=== PATIENT | female | born 1950 | race Caucasian/White ===

== ENCOUNTER 2018-08-02 09:36 | Outpatient (CLI) | payer MEDICARE, BC | END 2018-08-02 09:37 | disposition home or self-care (01) | LOC: BICMAMMO 09:36 | PROVIDERS: ATTEND Family Medicine | DX: Z12.31 Encounter for screening mammogram for malignant neoplasm of breast (principal); Z80.3 Family history of malignant neoplasm of breast | CPT/HCPCS: 77063; 77067 ==

== ENCOUNTER 2023-01-24 05:50 | Day surgery (SDC) | payer MEDICARE ==
[2023-01-21 10:23] VITALS: BMI 33.3
[2023-01-24 06:43] LABS: #Basophils 0.1 thou/uL (0.0-0.2); #Eosinphils 0.5 thou/uL (0.0-0.7); #Monocytes 0.8 thou/uL (0.11-0.59); #Neutrophils 5.3 thou/uL (1.40-6.50); %Basophils 0.8 % (0.0-1.0); %Eosinophils 5.9 % (0.0-10.0); %Lymphocytes 14.6 % (21.0-51.0); %Monocytes 10.3 % (0.0-10.0); %Neutrophils 67.9 % (42.0-75.0); Hemoglobin 15.7 g/dL (12.0-16.0); Mean Corpuscular HGB CONC 33.5 g/dL (32.0-36.0); Mean Corpuscular Hemoglobin 28.6 pg (27.0-31.0); Mean Corpuscular Volume 85.2 fl (78.0-98.0); Mean Platelet Volume 10.1 fL (7.4-10.4); Platelet Count 202 10x3/uL (130-400); RBC Distribution Width 12.1 % (11.5-14.5); Red Blood Cell (RBC) Count 5.49 mill/uL (4.20-5.40); White Blood Cell (WBC) Count 7.7 10x3/uL (4.8-10.8)
[2023-01-24] MEDS ORDERED: Adenosine 6 MG/2 ML VIAL ONE (06:59)
[2023-01-24] MEDS ORDERED: Verapamil 5 MG/2 ML VIAL ONE (06:59)
[2023-01-24] MEDS ORDERED: Midazolam HCl 2 mg/2 ml Vial ONE (06:59)
[2023-01-24] MEDS ORDERED: Heparin 10,000 UNITS/ 10 ML VIAL ONE (06:59)
[2023-01-24] MEDS ORDERED: fentaNYL 50 mcg/mL 1 mL Vial ONE (06:59)
[2023-01-24] MEDS ORDERED: Nitroglycerin 50 MG/250 ML BOT 0 ML ONE (07:00)
[2023-01-24] MEDS ORDERED: Lidocaine 1% (PF) 30 ML VIAL ONE (07:00)
[2023-01-24 07:07] LABS: ALT (SGPT) 48 U/L (8-55); AST (SGOT) 41 U/L (5-34); Albumin 4.2 g/dL (3.4-4.8); Alkaline Phosphatase 98 U/L (40-110); Anion Gap 17 mmol/L (10-20); BUN (Urea Nitrogen) 11 mg/dL (9.8-20.1); Bilirubin, Total 0.5 mg/dL (0.2-1.2); Calc. Creatinine Clearance 85 mL/min (70-130); Calcium 9.7 mg/dL (7.8-10.44); Carbon Dioxide 19 mmol/L (23-31); Chloride 103 mmol/L (98-107); Estimated GFR 75; Globulin 3.2 g/dL (2.4-3.5); Glucose 271 mg/dL (83-110); Potassium 4.1 mmol/L (3.5-5.1); Protein, Total 7.4 g/dL (5.8-8.1); Sodium 135 mmol/L (136-145)
[2023-01-24] MEDS ORDERED: Iopamidol 370 76% 100 ML VIAL ONE (11:41)
== END 2023-01-24 11:30 | disposition home or self-care (01) ==
LOC: CCL 05:50
PROVIDERS: ATTEND Internal Medicine Cardiovascular Disease
PROC: 4A023N7 Measurement of Cardiac Sampling and Pressure, Left Heart, Percutaneous Approach (ICD-10-PCS; principal; 2023-01-24)
PROC: B2000ZZ Plain Radiography of Single Coronary Artery using High Osmolar Contrast (ICD-10-PCS; 2023-01-24)
DX: I25.10 Atherosclerotic heart disease of native coronary artery without angina pectoris (principal); R06.02 Shortness of breath; I87.2 Venous insufficiency (chronic) (peripheral); E11.9 Type 2 diabetes mellitus without complications; I10 Essential (primary) hypertension; E78.5 Hyperlipidemia, unspecified; M19.90 Unspecified osteoarthritis, unspecified site; Z95.5 Presence of coronary angioplasty implant and graft; Z90.710 Acquired absence of both cervix and uterus; Z98.41 Cataract extraction status, right eye; Z98.42 Cataract extraction status, left eye; Z79.84 Long term (current) use of oral hypoglycemic drugs; Z79.899 Other long term (current) drug therapy
CPT/HCPCS: 80053; 85025; 93005; 93458; J3010; 93010; 99152; J0153; J1644; J2001; J2250

== ENCOUNTER 2023-05-09 05:46 | Inpatient (IN) | payer MEDICARE ==
[2023-05-06 09:51] VITALS: BMI 32.5
[2023-05-06 10:15] LABS: Hematocrit 41.6 % (34.9-44.5); Hemoglobin 14.2 g/dL (12.0-15.5); Mean Corpuscular HGB CONC 34.1 g/dL (32.0-36.0); Mean Corpuscular Hemoglobin 28.7 pg (27.0-33.0); Mean Platelet Volume 10.7 fl (7.4-10.4); Platelet Count 197 10x3/uL (150-450); RBC Distribution Width 12.2 % (11.5-14.5); Red Blood Cell (RBC) Count 4.95 10x6/uL (3.90-5.03); White Blood Cell (WBC) Count 5.6 10x3/uL (3.5-10.5)
[2023-05-06 10:27] LABS: Anion Gap 14 mmol/L (10-20); BUN (Urea Nitrogen) 9 mg/dL (9.8-20.1); Calc. Creatinine Clearance 0 mL/min (70-130); Carbon Dioxide 24 mmol/L (23-31); Chloride 103 mmol/L (98-107); Potassium 4.1 mmol/L (3.5-5.1); Sodium 137 mmol/L (136-145)
[2023-05-06 10:28] LABS: Estimated GFR 81; Glucose 301 mg/dL (83-110)
[2023-05-09] MEDS ORDERED: Albumin 5% 500 ML ONE (06:38)
[2023-05-09] MEDS ORDERED: Phenylephrine 10 MG/ML VIAL ONE ×2 (06:39→06:40)
[2023-05-09] MEDS ORDERED: PHENYLEPHRINE-NS 100 MCG/ML 10 ML SYRINGE ONE ×2 (06:40→07:48)
[2023-05-09] MEDS ORDERED: Sevoflurane 250 ML INH ANEST BOTTLE ONE (06:41)
[2023-05-09] MEDS ORDERED: Heparin 10,000 UNITS/1 ML VIAL 30,000 UNITS in Sodium Chloride 0.9% 1,000 ML FS SCH (06:45)
[2023-05-09] MEDS ORDERED: Midazolam HCl 2 mg/2 ml Vial ONE ×2 (07:01)
[2023-05-09] MEDS ORDERED: Fentanyl 250 MCG/5 ML VIAL ONE (07:01)
[2023-05-09] MEDS ORDERED: niCARdipine 25 MG/10 ML SDV ONE (07:02)
[2023-05-09] MEDS ORDERED: Insulin Regular 300 UNITS/3 ML VIAL ONE (07:02)
[2023-05-09] MEDS ORDERED: Aminocaproic Acid 5 GM/20 ML VIAL ONE (07:02)
[2023-05-09] MEDS ORDERED: Rocuronium Bromide 50 MG/5 ML VIAL ONE (07:02)
[2023-05-09] MEDS ORDERED: Norepinephrine 4 MG/4 ML VIAL ONE (07:02)
[2023-05-09] MEDS ORDERED: Clindamycin/D5W 900 mg/50 ml Premix Bag ONE (07:29)
[2023-05-09] MEDS ORDERED: PROPOFOL 200 MG/20 ML VIAL ONE (07:48)
[2023-05-09] MEDS ORDERED: Lidocaine 1% PF 5 ML VIAL ONE (07:48)
[2023-05-09] MEDS ORDERED: Rocuronium Bromide 10 MG/ML (10ML VIAL) ONE (07:48)
[2023-05-09] MEDS ORDERED: Esmolol 100 MG/10 ML VIAL ONE (07:48)
[2023-05-09] MEDS ORDERED: Bisacodyl 5 MG TAB PO PRN (10:34)
[2023-05-09] MEDS ORDERED: Guaifenesin DM 100-10/5 ML UDCUP PO PRN (10:34)
[2023-05-09] MEDS ORDERED: Ipratropium/Albuterol 3 ML NEB NEB PRN (10:34)
[2023-05-09] MEDS ORDERED: Morphine 2 MG/ML VIAL SLOW IVP PRN (10:34)
[2023-05-09] MEDS ORDERED: Mag-Al 1200 mg/1200 mg/30 ML UDCUP PO PRN (10:34)
[2023-05-09] MEDS ORDERED: Hetastarch 6% 500 ML 500 ML IVPB PRN (10:34)
[2023-05-09] MEDS ORDERED: niCARdipine 25 MG in Sodium Chloride 0.9% 250 ML 250 ML IVPB PRN (10:34)
[2023-05-09] MEDS ORDERED: NOREPINEPHRINE 8 MG/250 ML-D5W 250 ML IVPB PRN (10:34)
[2023-05-09] MEDS ORDERED: Nitroglycerin 50 MG/250 ML BOT 250 ML IVPB PRN (10:34)
[2023-05-09] MEDS ORDERED: Post-Op Insulin Drip Protocol IVPB ONE (10:34)
[2023-05-09] MEDS ORDERED: Ondansetron PF 4 MG/2 ML Vial IVP PRN (10:34)
[2023-05-09] MEDS ORDERED: DOPamine 400 MG/D5W 250 ML 250 ML IVPB PRN (10:34)
[2023-05-09] MEDS ORDERED: Acetaminophen 325 MG TAB PO PRN (10:34)
[2023-05-09] MEDS ORDERED: fentaNYL 50 mcg/mL 1 mL Vial SLOW IVP PRN (10:34)
[2023-05-09] MEDS ORDERED: Bisacodyl 10 MG SUPP PR PRN (10:34)
[2023-05-09] MEDS ORDERED: Dextrose 50% Abboject 50 ML SYRINGE SLOW IVP PRN (10:45)
[2023-05-09] MEDS ORDERED: HUMULIN R 100 UNITS in Sodium Chloride 0.9% 100 ML IVPB SCH (10:45)
[2023-05-09] MEDS ORDERED: Dextrose 5% in Water 1,000 ML IV PRN (10:45)
[2023-05-09] MEDS ORDERED: Glucagon 1 MG/ML KIT SC PRN (10:45)
[2023-05-09 10:49] LABS: Actual Bicarbonate (HCO3a) 22.5 mEq/L (22-28); Base Excess (BEa) -2.2 mEq/L (-2.0 to +3.0); CO2 Tension 38.6 mmHg (35.0-45.0); Calcium, Ionized (arterial) 1.09 mmol/L (1.12-1.30); Carboxyhemoglobin (COHb) 0.3 gm% (0.0-3.0); Hematocrit-ABG 35 % (36.0-47.0); Hemoglobin (Hb) 11.9 g/dL (12.0-16.0); O2 Tension (PaO2), arterial 207.3 mmHg (> 70.0); Potassium - ABG Lab 3.74 mmol/L (3.70-5.30); pH, Arterial 7.384 (7.35-7.45)
[2023-05-09 10:54] LABS: Puncture Site Arterial Line
[2023-05-09] MEDS: Lactated Ringer's 1,000 ML IV SCH (11:07)
[2023-05-09] MEDS: Ketorolac Tromethamine 30 MG/ML VIAL IVP SCH ×2 (11:10→18:15)
[2023-05-09 11:13] LABS: #Eosinphils 0.3 thou/uL (0.0-0.7); #Monocytes 0.3 thou/uL (0.11-0.59); %Basophils 0.6 % (0.0-1.0); %Eosinophils 4.8 % (0.0-10.0); %Lymphocytes 13.6 % (21.0-51.0); %Monocytes 4.7 % (0.0-10.0); %Neutrophils 74.6 % (42.0-75.0); Hematocrit 33.1 % (36.0-47.0); Hemoglobin 11.2 g/dL (12.0-16.0); Mean Corpuscular HGB CONC 33.8 g/dL (32.0-36.0); Mean Corpuscular Hemoglobin 29.3 pg (27.0-31.0); Mean Corpuscular Volume 86.6 fl (78.0-98.0); Mean Platelet Volume 10.4 fL (7.4-10.4); Platelet Count 119 10x3/uL (130-400); RBC Distribution Width 12.1 % (11.5-14.5); Red Blood Cell (RBC) Count 3.82 mill/uL (4.20-5.40); White Blood Cell (WBC) Count 5.4 10x3/uL (4.8-10.8)
[2023-05-09 11:24] LABS: INR-International Normal Ratio 1.4; PTT 32.1 sec (22.9-36.1); Prothrombin Time 17.4 sec (12.0-14.7)
[2023-05-09] MEDS: hydrALAZINE 20 MG/ML VIAL SLOW IVP PRN (11:25)
[2023-05-09 11:38] LABS: Anion Gap 8 mmol/L (10-20); BUN (Urea Nitrogen) 7 mg/dL (9.8-20.1); Calc. Creatinine Clearance 114 mL/min (70-130); Calcium 7.6 mg/dL (7.8-10.44); Carbon Dioxide 24 mmol/L (23-31); Chloride 111 mmol/L (98-107); Estimated GFR 93; Glucose 155 mg/dL (83-110); Potassium 3.8 mmol/L (3.5-5.1); Sodium 139 mmol/L (136-145)
[2023-05-09] MEDS: Potassium Chloride 20 MEQ/100 ML PREMIX BAG IVPB PRN ×2 (11:43→17:25)
[2023-05-09] MEDS: Clindamycin/D5W 900 MG in Premix 1 BAG IVPB SCH ×2 (12:43→18:15)
[2023-05-09 16:01] LABS: Actual Bicarbonate (HCO3a) 21.5 mEq/L (22-28); Base Excess (BEa) -3.1 mEq/L (-2.0 to +3.0); CO2 Tension 37.2 mmHg (35.0-45.0); Calcium, Ionized (arterial) 1.16 mmol/L (1.12-1.30); Carboxyhemoglobin (COHb) 0.9 gm% (0.0-3.0); Hematocrit-ABG 39 % (36.0-47.0); Hemoglobin (Hb) 13.4 g/dL (12.0-16.0); O2 Tension (PaO2), arterial 148.3 mmHg (> 70.0); Potassium - ABG Lab 3.69 mmol/L (3.70-5.30)
[2023-05-09 16:08] LABS: Puncture Site Arterial Line
[2023-05-09] MEDS: fentaNYL 50 mcg/mL 1 mL Vial SLOW IVP PRN ×2 (16:17→21:17)
[2023-05-09 16:48] LABS: Hematocrit 37.8 % (36.0-47.0); Hemoglobin 12.8 g/dL (12.0-16.0)
[2023-05-09 17:12] LABS: Potassium 3.6 mmol/L (3.5-5.1)
[2023-05-09] MEDS: Atorvastatin Calcium 20 MG TAB PO SCH (21:51)
[2023-05-09] MEDS: HYDROcodone/Acetaminophen 5/325 mg Tablet PO PRN (21:51)
[2023-05-09] MEDS: Famotidine/PF 20 mg/2ml Vial SLOW IVP SCH (21:53)
[2023-05-10] MEDS: Clindamycin/D5W 900 MG in Premix 1 BAG IVPB SCH ×2 (00:48→06:32)
[2023-05-10] MEDS: Ketorolac Tromethamine 30 MG/ML VIAL IVP SCH ×3 (00:48→11:43)
[2023-05-10] MEDS: Lactated Ringer's 1,000 ML IV SCH ×3 (00:50→11:57)
[2023-05-10 05:21] LABS: #Monocytes 0.4 thou/uL (0.11-0.59); #Neutrophils 5.2 thou/uL (1.40-6.50); %Basophils 0.5 % (0.0-1.0); %Eosinophils 0.2 % (0.0-10.0); %Lymphocytes 10.1 % (21.0-51.0); Hematocrit 39.4 % (36.0-47.0); Hemoglobin 12.9 g/dL (12.0-16.0); Mean Corpuscular HGB CONC 32.7 g/dL (32.0-36.0); Mean Corpuscular Hemoglobin 29.1 pg (27.0-31.0); Mean Corpuscular Volume 88.9 fl (78.0-98.0); Mean Platelet Volume 10.7 fL (7.4-10.4); Platelet Count 141 10x3/uL (130-400); RBC Distribution Width 12.9 % (11.5-14.5); Red Blood Cell (RBC) Count 4.43 mill/uL (4.20-5.40); White Blood Cell (WBC) Count 6.3 10x3/uL (4.8-10.8)
[2023-05-10] MEDS: HYDROcodone/Acetaminophen 5/325 mg Tablet PO PRN ×3 (05:28→20:07)
[2023-05-10 05:59] LABS: Anion Gap 11 mmol/L (10-20); BUN (Urea Nitrogen) 10 mg/dL (9.8-20.1); Calc. Creatinine Clearance 110 mL/min (70-130); Calcium 8.4 mg/dL (7.8-10.44); Carbon Dioxide 21 mmol/L (23-31); Chloride 111 mmol/L (98-107); Estimated GFR 93; Glucose 143 mg/dL (83-110); Sodium 139 mmol/L (136-145)
[2023-05-10] MEDS: Potassium Chloride 20 MEQ/100 ML PREMIX BAG IVPB PRN (06:35)
[2023-05-10] MEDS: glipiZIDE 5 MG TAB PO SCH ×2 (07:55→16:22)
[2023-05-10] MEDS: Famotidine/PF 20 mg/2ml Vial SLOW IVP SCH (09:54)
[2023-05-10] MEDS: Aspirin 325 MG TAB PO SCH (09:54)
[2023-05-10] MEDS: Polyethylene Glycol 3350 17 GM Packet PO SCH (09:59)
[2023-05-10] MEDS ORDERED: Insulin Glargine 30 UNITS/0.3 ML VIAL SC SCH (10:30)
[2023-05-10] MEDS ORDERED: Insulin Glargine 30 UNITS/0.3 ML VIAL SC PRN (10:41)
[2023-05-10] MEDS: Insulin Regular 300 UNITS/3 ML VIAL SC PRN ×2 (16:22→20:18)
[2023-05-10] MEDS: hydrALAZINE 20 MG/ML VIAL SLOW IVP PRN ×2 (16:58→22:36)
[2023-05-10] MEDS: Atorvastatin Calcium 20 MG TAB PO SCH (20:07)
[2023-05-10] MEDS: Famotidine 20 MG TAB PO SCH (20:07)
[2023-05-11 04:04] LABS: #Eosinphils 0.1 thou/uL (0.0-0.7); #Monocytes 0.9 thou/uL (0.11-0.59); #Neutrophils 6.5 thou/uL (1.40-6.50); %Basophils 0.4 % (0.0-1.0); %Eosinophils 0.8 % (0.0-10.0); %Lymphocytes 11.1 % (21.0-51.0); %Monocytes 10.2 % (0.0-10.0); Hematocrit 37.3 % (36.0-47.0); Hemoglobin 12.1 g/dL (12.0-16.0); Mean Corpuscular HGB CONC 32.4 g/dL (32.0-36.0); Mean Corpuscular Hemoglobin 29.2 pg (27.0-31.0); Mean Corpuscular Volume 89.9 fl (78.0-98.0); Mean Platelet Volume 10.6 fL (7.4-10.4); Platelet Count 129 10x3/uL (130-400); RBC Distribution Width 13.2 % (11.5-14.5); Red Blood Cell (RBC) Count 4.15 mill/uL (4.20-5.40); White Blood Cell (WBC) Count 8.4 10x3/uL (4.8-10.8)
[2023-05-11 04:30] LABS: Anion Gap 13 mmol/L (10-20); BUN (Urea Nitrogen) 15 mg/dL (9.8-20.1); Calc. Creatinine Clearance 96 mL/min (70-130); Calcium 8.6 mg/dL (7.8-10.44); Carbon Dioxide 20 mmol/L (23-31); Chloride 107 mmol/L (98-107); Estimated GFR 82; Glucose 174 mg/dL (83-110); Potassium 4.3 mmol/L (3.5-5.1); Sodium 136 mmol/L (136-145)
[2023-05-11] MEDS: Insulin Regular 300 UNITS/3 ML VIAL SC PRN (05:43)
[2023-05-11] MEDS: glipiZIDE 5 MG TAB PO SCH ×2 (07:18→16:52)
[2023-05-11] MEDS: HYDROcodone/Acetaminophen 5/325 mg Tablet PO PRN ×2 (08:03→18:47)
[2023-05-11] MEDS: Famotidine 20 MG TAB PO SCH ×2 (08:37→20:22)
[2023-05-11] MEDS: Aspirin 325 MG TAB PO SCH (08:37)
[2023-05-11] MEDS: Polyethylene Glycol 3350 17 GM Packet PO SCH (08:38)
[2023-05-11] MEDS ORDERED: Nitroglycerin 0.4 MG TAB (25 Tab Bottle) SL PRN (09:18)
[2023-05-11] MEDS ORDERED: Glucagon 1 MG/ML KIT SC PRN (09:45)
[2023-05-11] MEDS ORDERED: Insulin Regular 300 UNITS/3 ML VIAL SC PRN (09:45)
[2023-05-11] MEDS ORDERED: HUMULIN R 100 UNITS in Sodium Chloride 0.9% 100 ML IVPB SCH (09:45)
[2023-05-11] MEDS ORDERED: Dextrose 5% in Water 1,000 ML IV PRN (09:45)
[2023-05-11] MEDS ORDERED: Dextrose 50% Abboject 50 ML SYRINGE SLOW IVP PRN (09:45)
[2023-05-11 17:55] LABS: Glucose 251 mg/dL (83-110)
[2023-05-11] MEDS: Atorvastatin Calcium 20 MG TAB PO SCH (20:22)
[2023-05-11] MEDS ORDERED: Carvedilol 3.125 MG TAB PO SCH (21:00)
[2023-05-12] MEDS ORDERED: dilTIAZem 25 MG/5 ML VIAL SLOW IVP SCH (05:30)
[2023-05-12] MEDS ORDERED: dilTIAZem 125 MG, Admixture Fee 1 EACH in Sodium Chloride 0.9% 100 ML IVPB SCH (06:00)
[2023-05-12 07:40] LABS: Glucose 228 mg/dL (83-110)
[2023-05-12] MEDS: glipiZIDE 10 MG TAB PO SCH ×2 (08:27→16:25)
[2023-05-12] MEDS: Furosemide 40 MG TAB PO SCH (08:27)
[2023-05-12] MEDS: Potassium Chloride 10 MEQ TAB PO SCH (08:27)
[2023-05-12] MEDS: Insulin Glargine 30 UNITS/0.3 ML VIAL SC SCH ×2 (08:27→21:07)
[2023-05-12] MEDS: Famotidine 20 MG TAB PO SCH ×2 (08:27→21:07)
[2023-05-12] MEDS: Aspirin 325 MG TAB PO SCH (08:27)
[2023-05-12] MEDS: Carvedilol 6.25 MG TAB PO SCH ×2 (08:27→16:25)
[2023-05-12] MEDS: Polyethylene Glycol 3350 17 GM Packet PO SCH (08:27)
[2023-05-12] MEDS ORDERED: Insulin Glargine 30 UNITS/0.3 ML VIAL SC PRN (09:31)
[2023-05-12] MEDS: Insulin Regular 300 UNITS/3 ML VIAL SC PRN ×2 (13:21→16:25)
[2023-05-12] MEDS: Atorvastatin Calcium 20 MG TAB PO SCH (21:07)
[2023-05-13] MEDS: Furosemide 40 MG TAB PO SCH (08:44)
[2023-05-13] MEDS: Potassium Chloride 10 MEQ TAB PO SCH (08:44)
[2023-05-13] MEDS: glipiZIDE 10 MG TAB PO SCH ×2 (08:44→15:58)
[2023-05-13] MEDS: Carvedilol 6.25 MG TAB PO SCH ×2 (08:44→15:58)
[2023-05-13] MEDS: Losartan 25 MG TAB PO SCH (08:45)
[2023-05-13] MEDS: Famotidine 20 MG TAB PO SCH ×2 (08:45→21:42)
[2023-05-13] MEDS: Aspirin 325 MG TAB PO SCH (08:45)
[2023-05-13] MEDS: Polyethylene Glycol 3350 17 GM Packet PO SCH (08:45)
[2023-05-13] MEDS: Insulin Glargine 30 UNITS/0.3 ML VIAL SC SCH ×2 (08:46→21:42)
[2023-05-13] MEDS: Insulin Regular 300 UNITS/3 ML VIAL SC PRN (15:59)
[2023-05-13] MEDS: Atorvastatin Calcium 20 MG TAB PO SCH (21:42)
[2023-05-14] MEDS: Insulin Glargine 30 UNITS/0.3 ML VIAL SC SCH (08:39)
[2023-05-14] MEDS: Aspirin 325 MG TAB PO SCH (08:41)
[2023-05-14] MEDS: Carvedilol 6.25 MG TAB PO SCH (08:41)
[2023-05-14] MEDS: Losartan 25 MG TAB PO SCH (08:41)
[2023-05-14] MEDS: Potassium Chloride 10 MEQ TAB PO SCH (08:41)
[2023-05-14] MEDS: glipiZIDE 10 MG TAB PO SCH (08:41)
[2023-05-14] MEDS: Famotidine 20 MG TAB PO SCH (08:41)
[2023-05-14] MEDS: Furosemide 40 MG TAB PO SCH (08:41)
[2023-05-14] MEDS: Polyethylene Glycol 3350 17 GM Packet PO SCH (08:42)
[2023-05-14 11:52] VITALS: BP 110/62; TEMP 97.2
[2023-05-14] MEDS: Insulin Regular 300 UNITS/3 ML VIAL SC PRN (12:36)
[2023-05-23 13:08] LABS: Actual Bicarbonate (HCO3a) 24.6 mEq/L (22-28); Analyzer IN Cardio OR; Base Excess (BEa) -0.9 mEq/L (-2.0 to +3.0); CO2 Tension 43.9 mmHg (35.0-45.0); Calcium, Ionized (arterial) 1.17 mmol/L (1.12-1.30); Hematocrit-ABG 42 % (36.0-47.0); Hemoglobin (Hb) 14.2 g/dL (12.0-16.0); O2 Tension (PaO2), arterial 486.1 mmHg (> 70.0); pH, Arterial 7.366 (7.35-7.45)
[2023-05-23 13:08] LABS: Actual Bicarbonate (HCO3a) 23.9 mEq/L (22-28); Analyzer IN Cardio OR; Base Excess (BEa) -1.1 mEq/L (-2.0 to +3.0); Calcium, Ionized (arterial) 1.01 mmol/L (1.12-1.30); Carboxyhemoglobin (COHb) 0.2 gm% (0.0-3.0); Hematocrit-ABG 29 % (36.0-47.0); Hemoglobin (Hb) 9.7 g/dL (12.0-16.0); O2 Tension (PaO2), arterial 358.5 mmHg (> 70.0); Potassium - ABG Lab 4.07 mmol/L (3.70-5.30); pH, Arterial 7.384 (7.35-7.45)
[2023-05-23 13:08] LABS: Actual Bicarbonate (HCO3a) 22.2 mEq/L (22-28); Analyzer IN Cardio OR; Base Excess (BEa) -2.4 mEq/L (-2.0 to +3.0); CO2 Tension 37.7 mmHg (35.0-45.0); Hematocrit-ABG 38 % (36.0-47.0); Hemoglobin (Hb) 12.9 g/dL (12.0-16.0); O2 Tension (PaO2), arterial 487.4 mmHg (> 70.0); Potassium - ABG Lab 3.08 mmol/L (3.70-5.30); pH, Arterial 7.388 (7.35-7.45)
[2023-05-23 13:09] LABS: Actual Bicarbonate (HCO3a) 21.5 mEq/L (22-28); Analyzer IN Cardio OR; Base Excess (BEa) -3.7 mEq/L (-2.0 to +3.0); CO2 Tension 39.6 mmHg (35.0-45.0); Calcium, Ionized (arterial) 1.05 mmol/L (1.12-1.30); Hematocrit-ABG 33 % (36.0-47.0); Hemoglobin (Hb) 11.1 g/dL (12.0-16.0); O2 Tension (PaO2), arterial 462.4 mmHg (> 70.0); Potassium - ABG Lab 3.38 mmol/L (3.70-5.30); pH, Arterial 7.353 (7.35-7.45)
[2023-05-23 13:09] LABS: Puncture Site Arterial Line
[2023-05-23 13:10] LABS: Puncture Site Arterial Line
[2023-05-23 13:10] LABS: Puncture Site Arterial Line
[2023-05-23 13:11] LABS: Puncture Site Arterial Line
[2023-05-23 13:11] LABS: Analyzer IN Cardio OR; Base Excess 0.6 mEq/L (-2.0 to +3.0); Chloride (VBG) 107 mmol/L (98-106); Hematocrit-VBG 28 % (36.0-47.0); Hemoglobin (Hb) 9.4 g/dL (11.7-16.1); Sodium 137 mmol/L (133-146); pH (venous) 7.328 (7.32-7.43)
== END 2023-05-14 13:29 | disposition home or self-care (01) | DRG 236 ==
LOC: SURG A 05:46 → CCU 09:52 → EDSTATUS 13:56 → CCU 05-11 17:15 → 2NO 05-11 17:15 → CCU 05-13 07:57 → 2NO 05-13 07:57
PROVIDERS: ADMIT Thoracic Surgery (Cardiothoracic Vascular Surgery); ATTEND Thoracic Surgery (Cardiothoracic Vascular Surgery)
PROC: 02100Z9 Bypass Coronary Artery, One Artery from Left Internal Mammary, Open Approach (ICD-10-PCS; principal; 2023-05-09)
PROC: 021009W Bypass Coronary Artery, One Artery from Aorta with Autologous Venous Tissue, Open Approach (ICD-10-PCS; 2023-05-09)
PROC: 06BQ4ZZ Excision of Left Saphenous Vein, Percutaneous Endoscopic Approach (ICD-10-PCS; 2023-05-09)
PROC: 02L70CK Occlusion of Left Atrial Appendage with Extraluminal Device, Open Approach (ICD-10-PCS; 2023-05-09)
PROC: 5A1221Z Performance of Cardiac Output, Continuous (ICD-10-PCS; 2023-05-09)
PROC: 4A133R1 Monitoring of Arterial Saturation, Peripheral, Percutaneous Approach (ICD-10-PCS; 2023-05-09)
PROC: 30233J1 Transfusion of Nonautologous Serum Albumin into Peripheral Vein, Percutaneous Approach (ICD-10-PCS; 2023-05-09)
PROC: 3E033XZ Introduction of Vasopressor into Peripheral Vein, Percutaneous Approach (ICD-10-PCS; 2023-05-09)
DX: I25.10 Atherosclerotic heart disease of native coronary artery without angina pectoris (principal); I48.92 Unspecified atrial flutter; I48.91 Unspecified atrial fibrillation; E11.9 Type 2 diabetes mellitus without complications; I10 Essential (primary) hypertension; F32.A Depression, unspecified; E66.9 Obesity, unspecified; I25.2 Old myocardial infarction; Z90.49 Acquired absence of other specified parts of digestive tract; Z90.710 Acquired absence of both cervix and uterus; Z95.818 Presence of other cardiac implants and grafts; Z98.49 Cataract extraction status, unspecified eye; Z68.33 Body mass index [BMI] 33.0-33.9, adult; Z80.49 Family history of malignant neoplasm of other genital organs; Z79.84 Long term (current) use of oral hypoglycemic drugs; Z79.899 Other long term (current) drug therapy
CPT/HCPCS: 36415; 36416; 71045; 80048; 82805; 82947; 85025; 85027; 85610; 85730; 86850; 86900; 86901; 93005; 93010; 93798; 94002; A4311; C1751; J0360; J1642; J1650; J1815; J1885; J2250; J2370; J2405; J2704; J3010; J3480; J3490; J7120; P9045; S0017; S0028